=== PATIENT | female | born 1985 | race Caucasian/White ===

== ENCOUNTER 2016-11-21 11:06 | Emergency (ER) | payer OTHER ==
--- NOTE | 2016-11-21 12:33 | ED ---
Female Urogenital HPI - General Chief complaint: Vaginal Bleeding Stated complaint: 8wks preg/spotting Time Seen by Provider: 11/21/16 12:06 Source: patient, RN notes reviewed Mode of arrival: ambulatory Limitations: no limitations - History of Present Illness Initial comments: Patient is a 31-year-old female presents to the emergency room for evaluation of vaginal bleeding. Patient states about 8 weeks . Patient states she does have confirmed IUP by ultrasound. Patient states usually sees Dr. Tate for for her OB care. Patient states this morning she woke up was slight vaginal spotting. Patient states she noticed light pink blood in her underwear. Patient denies any cramping. Patient denies nausea or vomiting. Patient states the spotting has stopped since she's been here. Patient denies any pain or burning during urination, trouble urinating or blood in urine. Patient denies any vaginal irritation or discomfort. Patient states she has a history of chlamydia when she was younger that was treated. Patient denies any other symptoms or concerns. Patient states she's never had spotting before with her previous and felt she should be evaluated. Last Menstrual Period: 09/19/16 - Related Data Home Medications Medication Instructions Recorded Confirmed Pnv,Calcium 72/Iron/Folic Acid 1 tab PO DAILY 11/21/16 11/21/16 [ Plus Tablet] Allergies Allergy/AdvReac Type Severity Reaction Status Date / Time venom-honey bee Allergy Anaphylaxis Verified 11/21/16 11:51 [bee venom (honey bee)] Review of Systems ROS Statement: Those systems with pertinent positive or pertinent negative responses have been documented in the HPI. ROS Other: All systems not noted in ROS Statement are negative. Past Medical History Past Medical History: No Reported History Additional Past Medical History / Comment(s): Allergic to Bees. History of Any Multi-Drug Resistant Organisms: None Reported Past Surgical History: No Surgical Hx Reported Additional Past Surgical History / Comment(s): CKC Past Anesthesia/Blood Transfusion Reactions: No Reported Reaction Additional Past Anesthesia/Blood Transfusion Reaction / Comment(s): Has never had anesthesia. Past Psychological History: No Psychological Hx Reported Smoking Status: Current every day smoker Past Alcohol Use History: None Reported Past Drug Use History: None Reported - Past Family History Mother Family Medical History: No Reported History General Exam - General Exam Comments Initial Comments: Laying in exam room, no acute distress. Limitations: no limitations General appearance: alert, in no apparent distress Head exam: Present: atraumatic, normocephalic, normal inspection Eye exam: Present: normal appearance ENT exam: Present: normal exam Neck exam: Present: normal inspection Respiratory exam: Present: normal lung sounds bilaterally. Absent: respiratory distress Cardiovascular Exam: Present: regular rate, normal rhythm, normal heart sounds GI/Abdominal exam: Present: soft, normal bowel sounds. Absent: distended, tenderness, guarding, rebound, rigid External exam: Present: normal external exam Speculum exam: Present: vaginal bleeding (slight pink discharge from cervix) Expanded Speculum exam: Present: cervical OS closed Extremities exam: Present: normal inspection Back exam: Present: normal inspection Neurological exam: Present: alert, oriented X3, CN II-XII intact, normal gait Psychiatric exam: Present: normal affect, normal mood Skin exam: Present: warm, dry, intact, normal color. Absent: rash Course Vital Signs 11/21/16 11/21/16 11/21/16 11:29 13:16 14:54 Temperature 98.6 F 98.0 F Pulse Rate 93 80 81 Respiratory 20 16 16 Rate Blood Pressure 123/82 115/63 114/60 O2 Sat by Pulse 99 99 99 Oximetry 11/21/16 15:15 Temperature 97.9 F Pulse Rate Respiratory Rate Blood Pressure O2 Sat by Pulse Oximetry Medical Decision Making - Medical Decision Making Patient is a 31-year-old female presents emergency room for evaluation of slight vaginal spotting. Patient is . OB ultrasound: Estimated gestational age is discoordinate with current measurements approximately 2 weeks. Also, the sonogram for could not detect any M-mode heart tones. Color Doppler also shows no vascularity at the fetus. Findings suggest demise. Correlate with serial beta hCG values. Patient still denying any abdominal pain or cramping. Patient still denying any significant bleeding. Patient's blood type is O negative. Patient was given RhoGAM. Patient advised to return in 48 hours for repeat serum beta-hCG level. Patient states she has an appointment with her MARKETING PROGRAMS MANAGER tomorrow. Return parameters discussed. Case discussed with Dr. Stephen. - Lab Data Lab Results 11/21/16 11/21/16 11/21/16 Range/Units 12:20 12:20 12:20 HCG, Quant 6428.4 mIU/mL Urine Color Urine Appearance (Clear) Urine pH (5.0-8.0) Ur Specific [place] (1.001-1.035) Urine Protein (Negative) Urine Glucose (UA) (Negative) Urine Ketones (Negative) Urine Blood (Negative) Urine Nitrite (Negative) Urine Bilirubin (Negative) Urine Urobilinogen (<2.0) mg/dL Ur Leukocyte Esterase (Negative) Urine RBC (0-5) /hpf Urine WBC (0-5) /hpf Ur Squamous Epith Cells (0-4) /hpf Amorphous Sediment (None) /hpf Urine Bacteria (None) /hpf Urine Mucus (None) /hpf Urine HCG, Qual Detected (Not Detectd) Trichomonas Ag (Rapid) (Negative) Blood Type O Negative Blood Type Recheck O Neg Antibody Screen 11/21/16 11/21/16 11/21/16 Range/Units 12:20 12:20 12:20 HCG, Quant mIU/mL Urine Color Light Yellow Urine Appearance Cloudy H (Clear) Urine pH 5.5 (5.0-8.0) Ur Specific [place] 1.010 (1.001-1.035) Urine Protein Negative (Negative) Urine Glucose (UA) Negative (Negative) Urine Ketones Negative (Negative) Urine Blood Moderate H (Negative) Urine Nitrite Negative (Negative) Urine Bilirubin Negative (Negative) Urine Urobilinogen <2.0 (<2.0) mg/dL Ur Leukocyte Esterase Moderate H (Negative) Urine RBC 9 H (0-5) /hpf Urine WBC 11 H (0-5) /hpf Ur Squamous Epith Cells 24 H (0-4) /hpf Amorphous Sediment Occasional H (None) /hpf Urine Bacteria Occasional H (None) /hpf Urine Mucus Rare H (None) /hpf Urine HCG, Qual (Not Detectd) Trichomonas Ag (Rapid) Negative (Negative) Blood Type Blood Type Recheck Antibody Screen NEGATIVE - Radiology Data Radiology results: report reviewed, image reviewed Disposition Clinical Impression: Threatened Disposition: HOME SELF-CARE Condition: Good Instructions: Threatened Miscarriage (ED) Additional Instructions: Please follow-up with MARKETING PROGRAMS MANAGER in the next 24-48 hours. If any new symptom arises or symptoms worsen, return to ER as soon as possible. Referrals: Franchesca Figueredo MD [Primary Care Provider] - 1-2 days Noni Tate MD [STAFF PHYSICIAN] - 1-2 days Time of Disposition: 15:08
[2016-11-21 13:08] LABS: Amorphous Sediment,Urine Occasional /hpf; Appearance,Urine Cloudy (Clear); Bacteria,Urine Occasional /hpf; Bilirubin,Urine Negative (Negative); Glucose,Urine (UA) Negative (Negative); Ketones,Urine Negative (Negative); Leukocyte Esterase,Urine Moderate (Negative); Mucus,Urine Rare /hpf; Nitrite,Urine Negative (Negative); PH, Urine 5.5 (5.0-8.0); Particle Count 22657; Protein,Urine Negative (Negative); RBC,Urine 9 /hpf (0-5); Squamous Epithelial Cell,Urine 24 /hpf (0-4); UA Billing (MACRO vs. MICRO) MICRO; Urobilinogen,Urine <2.0 mg/dL (<2.0); WBC,Urine 11 /hpf (0-5)
[2016-11-21] MEDS ORDERED: Rhogam IMMUNE GLOBULIN 1,500 UNIT/1 ML IM ONE (13:13)
[2016-11-21 13:17] VITALS: RESP 16
--- NOTE | 2016-11-21 14:43 | US ---
EXAMINATION TYPE: US OB <=14 wks transvag DATE OF EXAM: 11/21/2016 COMPARISON: NONE CLINICAL HISTORY: 31-year-old female Pain. Spotting x 1 day Date of LMP: 09/19/2016 Beta HcG (if available): 6428.4 EXAM PERFORMED: Transvaginal (TV) FINDINGS: EXAM MEASUREMENTS: GESTATIONAL AGE / DATING Physician Established: (9 weeks/0 days) EDC: 06/26/2017 Dates by LMP: (9 weeks/0 days) EDC: 06/26/2017 Dates by First Scan: This is first Dates by Current Scan for: ( 7 weeks/1 days) EDC: 07/09/2017 MATERNAL ANATOMY Uterus: 6.7 x 3.3 x4.9 cm Right Ovary: Not seen due to overlying bowel gas. Left Ovary: 2.8 x 2.1 x 2.6 cm Post CDS / Adnexa: wnl Presence of free fluid: Trace fluid Presence of corpus luteal cyst: Within the left ovary measuring 1.9 cm. Presence of subchorionic bleed: no GESTATION / SURVEY CRL: 1.0 ( 7 weeks/1 days) Yolk Sac (normal less than 6mm): 3mm IUP: Demise IMPRESSION: Estimated gestational age is discordant with current measurements by approximately 2 weeks. Also, the consumer loan manager could not detect any M-mode heart tones. Color Doppler also shows no vascularity a t the fetus. Findings suggest demise. Correlate with serial beta-hCG values.
[2016-11-21 14:55] VITALS: BP 114/60; PULSE 81
[2016-11-21 15:16] VITALS: TEMP 97.9
== END 2016-11-21 15:25 | disposition home or self-care (01) ==
LOC: EC 11:06
DX: O20.0 Threatened abortion (principal); O99.331 Smoking (tobacco) complicating pregnancy, first trimester; F17.200 Nicotine dependence, unspecified, uncomplicated; Z3A.08 8 weeks gestation of pregnancy; Z91.030 Bee allergy status; Z79.899 Other long term (current) drug therapy
CPT/HCPCS: 99284; 96372; 36415; 86900; 86901; 87591; 87491; 86850; 81001; 81025; 84702; 87808; 87070; 76817; J2791; 76801; 87205

== ENCOUNTER → 2016-11-22 | Outpatient (CLI) | payer OTHER | END | disposition home or self-care (01) | LOC: LABPAT 12:30 | PROVIDERS: ATTEND Obstetrics & Gynecology | DX: Z53.9 Procedure and treatment not carried out, unspecified reason (principal) ==

== ENCOUNTER 2016-11-23 06:12 | Day surgery (SDC) | payer OTHER ==
[2016-11-22 14:20] LABS: Basophils % (A) 0 %; CH 31.2; CHCM 34.5; Eosinophils # (A) 0.1 k/uL (0-0.7); Eosinophils % (A) 1 %; HCT 40.2 % (34.0-46.0); HDW 2.33; Luc # (Auto) 0.13; Luc % (Auto) 1; Lymphocytes # (A) 1.8 k/uL (1.0-4.8); Lymphocytes % (A) 19 %; MCH 31.7 pg (25.0-35.0); MCHC 34.9 g/dL (31.0-37.0); MCV 90.8 fL (80.0-100.0); Mean Platelet Volume 9.3; Monocytes # (A) 0.5 k/uL (0-1.0); Monocytes % (A) 5 %; Neutrophils % (A) 73 %; RBC 4.42 m/uL (3.80-5.40); RDW 13.2 % (11.5-15.5); WBC 9.5 k/uL (3.8-10.6); WBC (Perox) 9.19
[2016-11-22 14:43] VITALS: BMI 26.2
[~2016-11-23 06:12] MED LIST: Pre Op ABX Message 1 EACH MISC MISCELLANE ONE
[2016-11-23] MEDS ORDERED: LACTATED RINGERS 1,000 ML IV ONE ×2 (06:29→07:16)
[2016-11-23] MEDS ORDERED: ONDANSETRON 4 MG/2 ML VIAL IVP ONE (06:30)
[2016-11-23] MEDS ORDERED: DEXAMETHASONE SOD PHOS (MDV) 100 MG/10 ML VIAL IVP ONE (06:30)
[2016-11-23] MEDS ORDERED: MIDAZOLAM 2 MG/2 ML VIAL ONE (06:55)
[2016-11-23] MEDS ORDERED: PROPOFOL 10 MG/ML 20 ML VIAL IV ONE (06:55)
[2016-11-23] MEDS ORDERED: KETOROLAC 30 MG/ML 1 ML VIAL ONE (06:55)
[2016-11-23] MEDS ORDERED: LIDOCAINE 1% INJ 10MG/ML (20 ML MDV) ONE (06:55)
[2016-11-23] MEDS ORDERED: SUCCINYLCHOLINE CHLORIDE 100 MG/5 ML SYR IV ONE (06:55)
--- NOTE | 2016-11-23 07:18 | P.OP ---
Date of Procedure: 11/23/16 Preoperative Diagnosis: Missed AB at 9 weeks gestation, Rh- Postoperative Diagnosis: Same Procedure(s) Performed: Suction D&C Implants: Anesthesia: GETA Surgeon: Noni Tate Estimated Blood Loss (ml): 100 IV fluids (ml): 700 Urine output (ml): 200 Pathology: other (Intrauterine contents) Condition: stable Disposition: PACU Indications for Procedure: Operative Findings: Description of Procedure: Patient is brought to the operating suite where a general anesthetic is administered without difficulty. The appropriate timeout is performed to assure proper patient and procedural identification. Patient is known to be Rh- , RhoGAM has already been given in the emergency room. No antibiotics are deemed necessary. The cervix, vagina, perineum are all prepped and draped in usual sterile fashion. Examination under anesthesia reveals an anteverted uterus of approximately 10 week size. Adnexa are negative bilaterally. Anterior lip of the cervix is grasped with a double-tooth tenaculum. Bladder is drained for 200 mL of clear yellow urine. Uterus sounds to a depth of 10 cm in the anteverted position. The cervix is next systematically and gently dilated using Hanks dilators. A # 8 curved curet is placed to the dome of the fundus. Under appropriate suction pressures the procedure is carried out. A moderate to large amount of tissue is obtained. A medium curette is used in all 4 quadrants and the cavity is noted to be empty. The suction curet is once again placed and no additional blood or products of conception are procured. Tenaculum is removed. Cervix is clean and dry. All sponge needle and enhancement counts are correct. Patient is brought back to the recovery room in very good condition with stable vital signs including blood pressure 94/45, pulse 95, 99% O2 saturation. She is given Toradol prior to leaving the operative suite. She will follow-up with me in the office in 2 weeks. Postoperative instructions are reviewed.
[2016-11-23 07:40] VITALS: TEMP 97.4
[2016-11-23 08:04] VITALS: RESP 16
[2016-11-23 08:21] VITALS: BP 113/82; PULSE 66
== END 2016-11-23 09:05 | disposition home or self-care (01) ==
LOC: OR 06:12
PROVIDERS: ATTEND Obstetrics & Gynecology
DX: O02.1 Missed abortion (principal); Z3A.09 9 weeks gestation of pregnancy; O99.331 Smoking (tobacco) complicating pregnancy, first trimester; F17.200 Nicotine dependence, unspecified, uncomplicated; Z91.030 Bee allergy status; J30.2 Other seasonal allergic rhinitis; Z79.899 Other long term (current) drug therapy
CPT/HCPCS: 86900; 86901; 88305; 85025; 86850; 86870; 86880; 59820; J2250; J2405; J2001; J1885; J1100; J0330; J2704

== ENCOUNTER 2017-05-24 16:08 | Emergency (ER) | payer OTHER ==
[2017-05-24 16:13] VITALS: BP 129/68; PULSE 90; RESP 20; TEMP 97.5
--- NOTE | 2017-05-24 16:30 | ED ---
General Adult HPI - General Chief complaint: Skin/Abscess/Foreign Body Stated complaint: L axillary boil Time Seen by Provider: 05/24/17 16:14 Source: patient, RN notes reviewed Mode of arrival: ambulatory Limitations: no limitations - History of Present Illness Initial comments: 32-year-old female presents emergency Department with chief complaint of abscess to the left axilla. She states it started about 3 days ago. She states she's had a history of these in the past. Denies any history of MRSA. Denies any fever chills cough cold Raynaud's. She states she has not been able to drain at home so she thought that she should be evaluated. There is been no other symptoms and the patient. Patient is otherwise feeling well.Patient denies any recent fever, chills, shortness of breath, chest pain, back pain, abdominal pain, nausea vomiting, numbness or tingling, dysuria or hematuria, constipation or diarrhea, headaches or visual changes, or any other current symptoms. - Related Data Home Medications Medication Instructions Recorded Confirmed Pnv,Calcium 72/Iron/Folic Acid 1 tab PO DAILY 11/21/16 11/22/16 [ Plus Tablet] Acetaminophen Tab [Tylenol Tab] 650 mg PO Q4H PRN 11/22/16 11/23/16 EPINEPHrine (Auto Inject) [Epipen] 0.3 mg IM ONCE PRN 11/22/16 11/22/16 Previous Rx's Medication Instructions Recorded Sulfamethox-Tmp 800-160Mg [Bactrim 2 each PO Q12HR #56 tab 05/24/17 DS 800-160 mg] Allergies Allergy/AdvReac Type Severity Reaction Status Date / Time venom-honey bee Allergy Anaphylaxis Verified 05/24/17 16:12 [bee venom (honey bee)] Review of Systems ROS Statement: Those systems with pertinent positive or pertinent negative responses have been documented in the HPI. ROS Other: All systems not noted in ROS Statement are negative. Past Medical History Past Medical History: No Reported History Additional Past Medical History / Comment(s): Allergic to Bees. MISSED AB CURRENTLY History of Any Multi-Drug Resistant Organisms: None Reported Past Surgical History: No Surgical Hx Reported Additional Past Surgical History / Comment(s): CKC, D&C Past Anesthesia/Blood Transfusion Reactions: No Reported Reaction Additional Past Anesthesia/Blood Transfusion Reaction / Comment(s): Has never had anesthesia. Past Psychological History: Anxiety, Depression Smoking Status: Current every day smoker Past Alcohol Use History: Occasional Past Drug Use History: None Reported - Past Family History Mother Family Medical History: No Reported History General Exam Limitations: no limitations General appearance: alert, in no apparent distress ENT exam: Present: normal exam, mucous membranes moist Neck exam: Present: normal inspection. Absent: tenderness, meningismus, lymphadenopathy Respiratory exam: Present: normal lung sounds bilaterally. Absent: respiratory distress, wheezes, rales, rhonchi, stridor Cardiovascular Exam: Present: regular rate, normal rhythm, normal heart sounds. Absent: systolic murmur, diastolic murmur, rubs, gallop, clicks Psychiatric exam: Present: normal affect, normal mood Skin exam: Present: warm, dry, intact, normal color, other (Left arm axilla area abscess) Course Vital Signs 05/24/17 16:11 Temperature 97.5 F L Pulse Rate 90 Respiratory 20 Rate Blood Pressure 129/68 O2 Sat by Pulse 100 Oximetry Procedures - Procedures Initial comment: Procedure: Incision and drainage The skin overlying the abscess was prepped with Betadine, and anesthetized with 1% lidocaine without epinephrine. A #11 scalpel was then used to incise the abscess. Some purulent material was then extracted from the lesion. Gauze dressing placed on top, The patient tolerated the procedure well. Medical Decision Making - Medical Decision Making 32-year-old female presents for left axilla abscess. At this time patient went drainage. We discussed care follow-up return parameters all questions. Patient stated that they are understanding and agreement this plan. All questions have been answered. They'll be discharged. Disposition Clinical Impression: Abscess of left axilla Disposition: HOME SELF-CARE Condition: Stable Instructions: Abscess (ED), Abscess Incision and Drainage (ED) Additional Instructions: Please use medication as discussed. Please follow up with family doctor if symptoms have not improved over the next two days. Please return to the emergency room if your symptoms increase or worsen or for any other concerns. Prescriptions: Sulfamethox-Tmp 800-160Mg [Bactrim DS 800-160 mg] 2 each PO Q12HR #56 tab Referrals: Franchesca Figueredo MD [Primary Care Provider] - 1-2 days Time of Disposition: 16:30
[2017-05-24] MEDS ORDERED: IBUPROFEN 600 MG STARTER PACK 4 TAB BTL PO STA (16:41)
== END 2017-05-24 16:48 | disposition home or self-care (01) ==
LOC: EC 16:08
DX: L02.412 Cutaneous abscess of left axilla (principal); F17.200 Nicotine dependence, unspecified, uncomplicated; Z91.030 Bee allergy status
CPT/HCPCS: 10060; 99282

== ENCOUNTER 2017-06-04 13:19 | Emergency (ER) | payer OTHER ==
[2017-06-04 13:38] VITALS: TEMP 98.6
[2017-06-04] MEDS ORDERED: diphenhydrAMINE 50 MG CAP PO STA (13:52)
[2017-06-04] MEDS ORDERED: predniSONE 20 MG TAB PO STA (13:52)
[2017-06-04] MEDS ORDERED: FAMOTIDINE 20 MG TAB PO STA (13:53)
--- NOTE | 2017-06-04 13:57 | ED ---
General Adult HPI - General Chief complaint: Allergic Reaction Stated complaint: Rash/Light headed Time Seen by Provider: 06/04/17 13:42 Source: patient, RN notes reviewed, old records reviewed Mode of arrival: ambulatory Limitations: no limitations - History of Present Illness Initial comments: Chief complaint and history of present illness is a 32-year-old female who has been on sulfa medication for 10 days. She had a left axillary abscess. Infection since gone away. Patient developed a pruritic rash starting yesterday. No difficulty breathing. No hives. - Related Data Home Medications Medication Instructions Recorded Confirmed Pnv,Calcium 72/Iron/Folic Acid 1 tab PO DAILY 11/21/16 11/22/16 [ Plus Tablet] Acetaminophen Tab [Tylenol Tab] 650 mg PO Q4H PRN 11/22/16 11/23/16 EPINEPHrine (Auto Inject) [Epipen] 0.3 mg IM ONCE PRN 11/22/16 11/22/16 Previous Rx's Medication Instructions Recorded Sulfamethox-Tmp 800-160Mg [Bactrim 2 each PO Q12HR #56 tab 05/24/17 DS 800-160 mg] predniSONE 20 mg PO DAILY #3 tab 06/04/17 Allergies Allergy/AdvReac Type Severity Reaction Status Date / Time venom-honey bee Allergy Anaphylaxis Verified 06/04/17 13:38 [bee venom (honey bee)] Review of Systems ROS Statement: Those systems with pertinent positive or pertinent negative responses have been documented in the HPI. Review of systems. No headache or visual acuity changes no sore throat no chest pain no shortness of breath. No GI/ problems no neuro deficits. The patient has a mildly pruritic rash from neck to the foot. No hives. All systems are reviewed. Past medical problem significant for having had MRSA type infection was responsive to the sulfa drug which she is taking for the first time the past 10 days. She appears to development ALLERGIC reaction. The patient's surgeries include D&C in November. Family history grandmother has lung cancer. The patient has ALLERGIES at now known to be sulfa also to bees. Personal history patient drinks alcohol socially, smokes cigarettes. Encouraged to stop smoking cigarettes. ROS Other: All systems not noted in ROS Statement are negative. Past Medical History Past Medical History: No Reported History Additional Past Medical History / Comment(s): Allergic to Bees. MISSED AB CURRENTLY History of Any Multi-Drug Resistant Organisms: None Reported Past Surgical History: No Surgical Hx Reported Additional Past Surgical History / Comment(s): CKC, D&C Past Anesthesia/Blood Transfusion Reactions: No Reported Reaction Additional Past Anesthesia/Blood Transfusion Reaction / Comment(s): Has never had anesthesia. Past Psychological History: Anxiety, Depression Smoking Status: Current every day smoker Past Alcohol Use History: Occasional Past Drug Use History: None Reported - Past Family History Mother Family Medical History: No Reported History General Exam - General Exam Comments Initial Comments: General: The patient is awake and alert, in no distress, and does not appear acutely ill. Presents with a rash secondary to medication she's been on for 10 dayssulfa. Vital signs shows temperature 98.6 pulse 94 story rate 16 pulse ox on percent room air blood pressure 179/67. Initial be repeated. Repeat blood pressure was 112/57 Eye: Pupils are equal, round and reactive to light, extra-ocular movements are intact ; there is normal conjunctiva bilaterally. No signs of icterus. Ears, nose, mouth and throat: There are moist mucous membranes and no oral lesions , no anterior cervical lymphadenopathy, no meningeal rotation, thyroid not enlarged.. Neck: The neck is supple, there is no tenderness . Cardiovascular: There is a regular rate and rhythm. No murmur, rub or gallop is appreciated. Respiratory: Lungs are clear to auscultation, respirations are non-labored, breath sounds are equal. No wheezes, stridor, rales, or rhonchi. Gastrointestinal: No complaint of nausea vomiting or diarrhea. No abdominal pain. Back: There is no tenderness to palpation in the midline. There is no obvious deformity. Patient has a rash typical of sulfa drug eruption. Musculoskeletal: Normal ROM, no tenderness, Neurological: Patient denies any numbness tingling no dizziness. No focal or lateralizing findings. Skin: Drug eruption rash secondary to sulfa.Psychiatric: Cooperative, no complaint of depression. Limitations: no limitations Course Vital Signs 06/04/17 13:36 Temperature 98.6 F Pulse Rate 94 Respiratory 16 Rate Blood Pressure 179/67 O2 Sat by Pulse 100 Oximetry Disposition Clinical Impression: Adverse reaction to drug Disposition: HOME SELF-CARE Condition: Fair Instructions: Antibiotic Medication Allergy (ED) Additional Instructions: Take Benadryl 25 mg 3 times daily. Prednisone 20 mg daily for 3 days, Pepcid 20 mg for 3 days. Stop taking sulfa. Return emergency room if having difficulties. Prescriptions: predniSONE 20 mg PO DAILY #3 tab Referrals: Franchesca Figueredo MD [Primary Care Provider] - 1-2 days Time of Disposition: 14:00
[2017-06-04 14:28] VITALS: BP 167/70; PULSE 90; RESP 18
== END 2017-06-04 14:27 | disposition home or self-care (01) ==
LOC: EC 13:19
DX: R21 Rash and other nonspecific skin eruption (principal); T37.0X5A Adverse effect of sulfonamides, initial encounter; F17.210 Nicotine dependence, cigarettes, uncomplicated; Z91.030 Bee allergy status
CPT/HCPCS: 99283; J7512

== ENCOUNTER 2019-04-17 19:34 | Emergency (ER) | payer OTHER ==
[2019-04-17] MEDS ORDERED: SODIUM CHLORIDE 0.9% 1,000 ML IV STA (21:06)
[2019-04-17 21:53] LABS: African American GFR (CKD) >90 (>60 ml/min/1.73 sqM); Albumin 3.9 g/dL (3.5-5.0); Amylase 34 U/L (30-110); Anion Gap 7 mmol/L; Calcium 9.3 mg/dL (8.4-10.2); Carbon Dioxide 25 mmol/L (22-30); Chloride 106 mmol/L (98-107); Glucose 90 mg/dL (74-99); Non-African American GFR(CKD) >90 (>60 ml/min/1.73 sqM); Sodium 138 mmol/L (137-145); Total Bilirubin 0.5 mg/dL (0.2-1.3); Total Protein 6.7 g/dL (6.3-8.2)
[2019-04-17 21:56] LABS: Appearance,Urine Cloudy (Clear); Bacteria,Urine Rare /hpf; Bilirubin,Urine Negative (Negative); Blood,Urine Moderate (Negative); Color,Urine Light Red; Glucose,Urine (UA) Negative (Negative); Ketones,Urine Negative (Negative); Leukocyte Esterase,Urine Small (Negative); Mucus,Urine Many /hpf; Nitrite,Urine Negative (Negative); PH, Urine 5.5 (5.0-8.0); Protein,Urine 1+ (Negative); RBC,Urine 25 /hpf (0-5); Specific Gravity,Urine 1.034 (1.001-1.035); Squamous Epithelial Cell,Urine 19 /hpf (0-4); Urobilinogen,Urine <2.0 mg/dL (<2.0)
[2019-04-17 21:58] LABS: Basophils % (A) 0 %; Eosinophils # (A) 0.3 k/uL (0-0.7); Eosinophils % (A) 2 %; HCT 38.4 % (34.0-46.0); HGB 12.9 gm/dL (11.4-16.0); Lymphocytes # (A) 2.3 k/uL (1.0-4.8); Lymphocytes % (A) 21 %; MCH 30.8 pg (25.0-35.0); MCHC 33.6 g/dL (31.0-37.0); MCV 91.5 fL (80.0-100.0); Mean Platelet Volume 8.6; Monocytes # (A) 0.7 k/uL (0-1.0); Monocytes % (A) 6 %; Neutrophils # (A) 7.6 k/uL (1.3-7.7); Neutrophils % (A) 69 %; Platelet Count 173 k/uL (150-450); RBC 4.19 m/uL (3.80-5.40)
[2019-04-17 22:09] LABS: HCG,Quantitative Serum 7263.6 mIU/mL
[2019-04-17 22:10] LABS: ALT 11 U/L (9-52); AST 22 U/L (14-36); Alkaline Phosphatase 61 U/L (38-126); Blood Urea Nitrogen 14 mg/dL (7-17); Potassium 4.3 mmol/L (3.5-5.1)
[2019-04-17] MEDS ORDERED: Rhogam IMMUNE GLOBULIN 1,500 UNIT/1 ML IM ONE (22:49)
--- NOTE | 2019-04-17 23:00 | US ---
EXAMINATION TYPE: Transabdominal DATE OF EXAM: 04/17/2019 10:44 PM COMPARISON: US 2017 CLINICAL HISTORY: Cramping/bleeding/approx 9wks. Cramping and bleeding x 3 days. Hx miscarriage. G3 P 1. EXAM PERFORMED: Transvaginal (TV) and Transabdominal (TA) EXAM MEASUREMENTS: GESTATIONAL AGE / DATING Physician Established: Not yet established Dates by LMP: (9 weeks/2 days) EDC: 11/18/2019 Dates by First Scan: This is first scan Dates by Current Scan for: Only gestational sac seen ( 5 weeks/2 days) EDC: 12/16/2019 MATERNAL ANATOMY Uterus: 7.5 x 5.2 x 4.8 cm. Multiple anechoic areas seen in EWELINA. Right Ovary: 3.4 x 1.7 x 2.0 cm. Left Ovary: 3.1 x 1.3 x 1.4 cm. Post CDS / Adnexa: Anechoic area seen in the right adnexa adjacent to or attached to right ovary amairani urin.2 x 1.0 x 1.1 cm. Presence of free fluid: Fluid seen in left adnexa adjacent to left ovary. Presence of corpus luteal cyst: Area of mixed echogenicity and peripheral vascularity seen in the rig ht ovary measurin.4 x 1.2 x 1.3 cm. Presence of subchorionic bleed: Hypoechoic area seen adjacent to gestational sac measurin.0 x 2.3 x 1.0 cm. GESTATION / SURVEY MSD: 1.14 cm. (5 weeks/2 days) Yolk Sac (normal less than 6mm): 4.1 mm. IUP: Only gestational sac and possible yolk sac seen at this time. Date of LMP: 02/11/2019 Only gestational sac and possible yolk sac seen at this time. IMPRESSION: Very small intrauterine gestational sac and possible yolk sac. Trace amount of fluid in the pelvis. N o adnexal mass seen to suggest ectopic .
--- NOTE | 2019-04-17 23:32 | ED ---
Abdominal Pain HPI - General Chief Complaint: Abdominal Pain Stated Complaint: 9 wks preg/female gu Time Seen by Provider: 04/17/19 20:48 Source: patient Mode of arrival: ambulatory Limitations: no limitations - History of Present Illness Initial Comments: 34-year-old female patient presents to the emergency department today for evaluation of vaginal bleeding and suprapubic cramping. Patient reports being . She believes she struck 9 weeks with last period being 02/11/2019. She is A1 with her last resulting in spontaneous . She has had her first visit with her PROSPECTING OBSERVER. She has not had a ultrasound confirming intrauterine . Patient states for the last 3 days she has had light brown discoloration of the toilet paper with wiping. States today she developed some suprapubic cramping. Denies radiation of the pain through to her back. Denies any nausea, vomiting, constipation, or diarrhea. Denies any hematuria, dysuria, urinary frequency, urinary urgency. Patient denies any recent rash, fever, chills, shortness breath, chest pain, numbness, tingling, dizziness, weakness, headache, visual changes, or any other complaints. - Related Data Home Medications Medication Instructions Recorded Confirmed Pnv,Calcium 72/Iron/Folic Acid 1 tab PO DAILY 11/21/16 06/04/17 [ Plus Tablet] Acetaminophen Tab [Tylenol Tab] 650 mg PO Q4H PRN 11/22/16 06/04/17 EPINEPHrine (Auto Inject) [Epipen] 0.3 mg IM ONCE PRN 11/22/16 06/04/17 Ibuprofen [Motrin Ib] 800 mg PO Q8H PRN 06/04/17 06/04/17 Previous Rx's Medication Instructions Recorded Sulfamethox-Tmp 800-160Mg [Bactrim 2 each PO Q12HR #56 tab 05/24/17 DS 800-160 mg] predniSONE 20 mg PO DAILY #3 tab 06/04/17 Cephalexin [Keflex] 500 mg PO BID #14 cap 04/17/19 Allergies Allergy/AdvReac Type Severity Reaction Status Date / Time venom-honey bee Allergy Anaphylaxis Verified 04/17/19 19:52 [bee venom (honey bee)] Review of Systems ROS Statement: Those systems with pertinent positive or pertinent negative responses have been documented in the HPI. ROS Other: All systems not noted in ROS Statement are negative. Past Medical History Past Medical History: No Reported History Additional Past Medical History / Comment(s): Allergic to Bees. MISSED AB CURRENTLY History of Any Multi-Drug Resistant Organisms: None Reported Past Surgical History: No Surgical Hx Reported Additional Past Surgical History / Comment(s): CKC, D&C Past Anesthesia/Blood Transfusion Reactions: No Reported Reaction Additional Past Anesthesia/Blood Transfusion Reaction / Comment(s): Has never had anesthesia. Past Psychological History: Anxiety, Depression Smoking Status: Current every day smoker Past Alcohol Use History: Occasional Past Drug Use History: None Reported - Past Family History Mother Family Medical History: No Reported History General Exam Limitations: no limitations General appearance: alert, in no apparent distress, other (This is a well- developed, well-nourished adult female patient in no acute distress. Vital signs upon presentation are temperature 98.7F, pulse 90, respirations 20, blood pressure 122/77, pulse ox 97% on room air.) Eye exam: Present: normal appearance, PERRL, EOMI. Absent: scleral icterus, conjunctival injection, periorbital swelling ENT exam: Present: normal exam, normal oropharynx, mucous membranes moist Respiratory exam: Present: normal lung sounds bilaterally. Absent: respiratory distress, wheezes, rales, rhonchi, stridor Cardiovascular Exam: Present: regular rate, normal rhythm, normal heart sounds. Absent: systolic murmur, diastolic murmur, rubs, gallop, clicks GI/Abdominal exam: Present: soft, normal bowel sounds. Absent: distended, tenderness, guarding, rebound, rigid Back exam: Absent: CVA tenderness (R), CVA tenderness (L) Neurological exam: Present: alert, oriented X3, CN II-XII intact Psychiatric exam: Present: normal affect, normal mood Skin exam: Present: warm, dry, intact, normal color. Absent: rash Course Vital Signs 04/17/19 19:50 Temperature 98.7 F Pulse Rate 90 Respiratory 20 Rate Blood Pressure 122/77 O2 Sat by Pulse 97 Oximetry Medical Decision Making - Medical Decision Making 34-year-old female patient presents to the emergency department today for evaluation of spotting and suprapubic cramping and . Physical examination reveals soft nontender abdomen. Labs reviewed and did reveal bacteria in the urine. She was Rh- so we did administer RhoGAM. Ultrasound was obtained and showed a very small gestational sac and a possible yolk sac. Patient was estimated to be around 9 weeks based on her last period, she has measuring 5 weeks 3 days. Given this information there is possibility for spontaneous rather than early . We will give prescription for repeat hCG in 3 days. We will treat for bacteruria with keflex. She is instructed follow up with her OBGYN for recheck as soon as possible. Return parameters were discussed in detail. She verbalizes understanding and agrees with this plan. - Lab Data Result diagrams: 04/17/19 21:37 04/17/19 21:37 Lab Results 04/17/19 04/17/19 04/17/19 Range/Units 21:37 21:37 21:37 WBC 11.0 H (3.8-10.6) k/uL RBC 4.19 (3.80-5.40) m/uL Hgb 12.9 (11.4-16.0) gm/dL Hct 38.4 (34.0-46.0) % MCV 91.5 (80.0-100.0) fL MCH 30.8 (25.0-35.0) pg MCHC 33.6 (31.0-37.0) g/dL RDW 13.0 (11.5-15.5) % Plt Count 173 (150-450) k/uL Neutrophils % 69 % Lymphocytes % 21 % Monocytes % 6 % Eosinophils % 2 % Basophils % 0 % Neutrophils # 7.6 (1.3-7.7) k/uL Lymphocytes # 2.3 (1.0-4.8) k/uL Monocytes # 0.7 (0-1.0) k/uL Eosinophils # 0.3 (0-0.7) k/uL Basophils # 0.0 (0-0.2) k/uL Sodium 138 (137-145) mmol/L Potassium 4.3 (3.5-5.1) mmol/L Chloride 106 (98-107) mmol/L Carbon Dioxide 25 (22-30) mmol/L Anion Gap 7 mmol/L BUN 14 (7-17) mg/dL Creatinine 0.55 (0.52-1.04) mg/dL Est GFR (CKD-EPI)AfAm >90 (>60 ml/min/1.73 sqM) Est GFR (CKD-EPI)NonAf >90 (>60 ml/min/1.73 sqM) Glucose 90 (74-99) mg/dL Calcium 9.3 (8.4-10.2) mg/dL Total Bilirubin 0.5 (0.2-1.3) mg/dL AST 22 (14-36) U/L ALT 11 (9-52) U/L Alkaline Phosphatase 61 (38-126) U/L Total Protein 6.7 (6.3-8.2) g/dL Albumin 3.9 (3.5-5.0) g/dL Amylase 34 (30-110) U/L Lipase 79 (23-300) U/L HCG, Quant 7263.6 mIU/mL Urine Color Urine Appearance (Clear) Urine pH (5.0-8.0) Ur Specific [place] (1.001-1.035) Urine Protein (Negative) Urine Glucose (UA) (Negative) Urine Ketones (Negative) Urine Blood (Negative) Urine Nitrite (Negative) Urine Bilirubin (Negative) Urine Urobilinogen (<2.0) mg/dL Ur Leukocyte Esterase (Negative) Urine RBC (0-5) /hpf Urine WBC (0-5) /hpf Ur Squamous Epith Cells (0-4) /hpf Urine Bacteria (None) /hpf Urine Mucus (None) /hpf Blood Type O Negative Blood Type Recheck O Neg Bld Type Recheck Status No Antibody Screen NEGATIVE 04/17/19 Range/Units 21:37 WBC (3.8-10.6) k/uL RBC (3.80-5.40) m/uL Hgb (11.4-16.0) gm/dL Hct (34.0-46.0) % MCV (80.0-100.0) fL MCH (25.0-35.0) pg MCHC (31.0-37.0) g/dL RDW (11.5-15.5) % Plt Count (150-450) k/uL Neutrophils % % Lymphocytes % % Monocytes % % Eosinophils % % Basophils % % Neutrophils # (1.3-7.7) k/uL Lymphocytes # (1.0-4.8) k/uL Monocytes # (0-1.0) k/uL Eosinophils # (0-0.7) k/uL Basophils # (0-0.2) k/uL Sodium (137-145) mmol/L Potassium (3.5-5.1) mmol/L Chloride (98-107) mmol/L Carbon Dioxide (22-30) mmol/L Anion Gap mmol/L BUN (7-17) mg/dL Creatinine (0.52-1.04) mg/dL Est GFR (CKD-EPI)AfAm (>60 ml/min/1.73 sqM) Est GFR (CKD-EPI)NonAf (>60 ml/min/1.73 sqM) Glucose (74-99) mg/dL Calcium (8.4-10.2) mg/dL Total Bilirubin (0.2-1.3) mg/dL AST (14-36) U/L ALT (9-52) U/L Alkaline Phosphatase (38-126) U/L Total Protein (6.3-8.2) g/dL Albumin (3.5-5.0) g/dL Amylase (30-110) U/L Lipase (23-300) U/L HCG, Quant mIU/mL Urine Color Light Red Urine Appearance Cloudy H (Clear) Urine pH 5.5 (5.0-8.0) Ur Specific [place] 1.034 (1.001-1.035) Urine Protein 1+ H (Negative) Urine Glucose (UA) Negative (Negative) Urine Ketones Negative (Negative) Urine Blood Moderate H (Negative) Urine Nitrite Negative (Negative) Urine Bilirubin Negative (Negative) Urine Urobilinogen <2.0 (<2.0) mg/dL Ur Leukocyte Esterase Small H (Negative) Urine RBC 25 H (0-5) /hpf Urine WBC 40 H (0-5) /hpf Ur Squamous Epith Cells 19 H (0-4) /hpf Urine Bacteria Rare H (None) /hpf Urine Mucus Many H (None) /hpf Blood Type Blood Type Recheck Bld Type Recheck Status Antibody Screen - Radiology Data Radiology results: report reviewed, image reviewed ultrasound was obtained. Report was reviewed in its entirety. Impression by Dr. Bryson shows very small intrauterine gestational sac and possibly yolk sac. Trace amount of fluid in the pelvis. No adnexal mass seen to suggest ectopic . Disposition Clinical Impression: Vaginal bleeding during , Threatened miscarriage Disposition: HOME SELF-CARE Condition: Good Instructions (If sedation given, give patient instructions): Threatened Miscarriage (ED), Abdominal Pain in (ED) Additional Instructions: Return for blood draw in 3 days. Follow-up with your PROSPECTING OBSERVER for recheck as soon as possible. Return to the emergency department immediately for any new, worsening, or concerning symptoms. Is patient prescribed a controlled substance at d/c from ED?: No Referrals: Franchesca Figueredo MD [Primary Care Provider] - 1-2 days Time of Disposition: 23:32
[2019-04-17 23:58] VITALS: BP 111/71; PULSE 80; RESP 18; TEMP 97.8
== END 2019-04-17 23:58 | disposition home or self-care (01) ==
LOC: EC 19:34
DX: O20.0 Threatened abortion (principal); O99.89 Other specified diseases and conditions complicating pregnancy, childbirth and the puerperium; R82.71 Bacteriuria; Z67.41 Type O blood, Rh negative; O99.331 Smoking (tobacco) complicating pregnancy, first trimester; F17.200 Nicotine dependence, unspecified, uncomplicated; Z91.030 Bee allergy status; Z87.59 Personal history of other complications of pregnancy, childbirth and the puerperium; Z98.890 Other specified postprocedural states; Z3A.01 Less than 8 weeks gestation of pregnancy
CPT/HCPCS: 36415; 76801; 76817; 80053; 81001; 82150; 83690; 84702; 85025; 86850; 86900; 86901; 87086; 96360; 96361; 96372; 99284

== ENCOUNTER → 2019-04-19 | Outpatient (CLI) | payer OTHER | END | disposition home or self-care (01) | LOC: LABWHC1 11:58 | PROVIDERS: ATTEND Nurse Practitioner | DX: O20.0 Threatened abortion (principal) | CPT/HCPCS: 36415; 84702 ==

== ENCOUNTER → 2019-04-26 | Outpatient (CLI) | payer OTHER | END | disposition home or self-care (01) | LOC: LABWHC1 16:24 | PROVIDERS: ATTEND Obstetrics & Gynecology | DX: O03.4 Incomplete spontaneous abortion without complication (principal) | CPT/HCPCS: 36415; 84702 ==

== ENCOUNTER → 2019-05-03 | Outpatient (CLI) | payer OTHER | END | disposition home or self-care (01) | LOC: LABWHC1 15:56 | PROVIDERS: ATTEND Obstetrics & Gynecology | DX: O03.9 Complete or unspecified spontaneous abortion without complication (principal) | CPT/HCPCS: 36415; 84702 ==

== ENCOUNTER → 2019-05-10 | Outpatient (CLI) | payer OTHER | END | disposition home or self-care (01) | LOC: LABWHC1 15:17 | PROVIDERS: ATTEND Obstetrics & Gynecology | DX: O03.9 Complete or unspecified spontaneous abortion without complication (principal) | CPT/HCPCS: 36415; 84702 ==

== ENCOUNTER 2020-02-28 18:28 | Emergency (ER) | payer OTHER ==
[2020-02-28 18:35] VITALS: TEMP 98.5
[2020-02-28] MEDS ORDERED: LIDOCAINE 1% INJ 10MG/ML (20 ML MDV) SQ ONE (19:04)
[2020-02-28] MEDS ORDERED: HYDROcodone/APAP 5-325MG 1 EACH TAB PO STA (19:04)
[2020-02-28] MEDS ORDERED: CLINDAMYCIN 150 MG CAP PO STA (19:04)
[2020-02-28] MEDS ORDERED: KETOROLAC 15 MG/ML 1 ML VIAL IM STA (19:04)
[2020-02-28] MEDS ORDERED: ACET/COD 300 MG/30 MG STARTER PACK 6 TAB BTL PO STA (19:55)
--- NOTE | 2020-02-28 19:56 | ED ---
Skin/Abscess/FB HPI - General Chief complaint: Skin/Abscess/Foreign Body Stated complaint: Abscess Time Seen by Provider: 02/28/20 18:44 Source: patient Mode of arrival: ambulatory Limitations: no limitations - History of Present Illness Initial comments: 34-year-old female patient presents to the emergency department today for evaluation of redness, swelling, pain to the right armpit. Patient states that she has had increased pain and swelling to the area over the last 2 days. States that she has similar issues with the left armpit over the last 3 or 4 years. States she has been diagnosed with hidradenitis and instructed to follow-up with plastic surgery for further evaluation and care. Patient states this is the first time she's had issue with the right armpit. She denies any drainage from the area. Denies fever or chills. Denies any right arm swelling or pain. Patient denies any recent rash, cough, shortness of breath, chest pain, abdominal pain, nausea, vomiting, diarrhea, constipation, back pain, numbness, tingling, dizziness, weakness, hematuria, dysuria, urinary urgency, urinary frequency, headache, visual changes, or any other complaints. - Related Data Home Medications Medication Instructions Recorded Confirmed Pnv,Calcium 72/Iron/Folic Acid 1 tab PO DAILY 11/21/16 06/04/17 [ Plus Tablet] Acetaminophen Tab [Tylenol Tab] 650 mg PO Q4H PRN 11/22/16 06/04/17 EPINEPHrine (Auto Inject) [Epipen] 0.3 mg IM ONCE PRN 11/22/16 06/04/17 Ibuprofen [Motrin Ib] 800 mg PO Q8H PRN 06/04/17 06/04/17 Previous Rx's Medication Instructions Recorded Sulfamethox-Tmp 800-160Mg [Bactrim 2 each PO Q12HR #56 tab 05/24/17 DS 800-160 mg] predniSONE [Deltasone] 20 mg PO DAILY #3 tab 06/04/17 Cephalexin [Keflex] 500 mg PO BID #14 cap 04/17/19 Clindamycin [Cleocin] 450 mg PO Q6H #120 cap 02/28/20 Allergies Allergy/AdvReac Type Severity Reaction Status Date / Time venom-honey bee Allergy Anaphylaxis Verified 02/28/20 18:35 [bee venom (honey bee)] Review of Systems ROS Statement: Those systems with pertinent positive or pertinent negative responses have been documented in the HPI. ROS Other: All systems not noted in ROS Statement are negative. Past Medical History Past Medical History: No Reported History Additional Past Medical History / Comment(s): Allergic to Bees. MISSED AB CURRENTLY History of Any Multi-Drug Resistant Organisms: None Reported Past Surgical History: No Surgical Hx Reported Additional Past Surgical History / Comment(s): CKC, D&C Past Anesthesia/Blood Transfusion Reactions: No Reported Reaction Additional Past Anesthesia/Blood Transfusion Reaction / Comment(s): Has never had anesthesia. Past Psychological History: Anxiety, Depression Smoking Status: Current every day smoker Past Alcohol Use History: Occasional Past Drug Use History: None Reported - Past Family History Mother Family Medical History: No Reported History General Exam Limitations: no limitations General appearance: alert, in no apparent distress, other (This is a well- developed, well-nourished adult female patient in no acute distress. Vital signs upon presentation are temperature 98.5F, pulse 102, respirations 20, blood pressure 158/100, pulse ox 99% on room air.) Respiratory exam: Present: normal lung sounds bilaterally. Absent: respiratory distress, wheezes, rales, rhonchi, stridor Cardiovascular Exam: Present: regular rate, normal rhythm, normal heart sounds. Absent: systolic murmur, diastolic murmur, rubs, gallop, clicks Extremities exam: Present: full ROM, normal capillary refill, other (There is a 2 cm x 1 cm area of redness, swelling, fluctuance to the right axillary region. This is consistent with abscess. No current drainage.). Absent: normal inspection, tenderness, pedal edema, joint swelling, calf tenderness Neurological exam: Present: alert, oriented X3, CN II-XII intact Psychiatric exam: Present: normal affect Skin exam: Present: warm, dry, intact, normal color. Absent: rash Course Vital Signs 02/28/20 02/28/20 18:32 20:08 Temperature 98.5 F Pulse Rate 102 H 86 Respiratory 20 16 Rate Blood Pressure 158/100 145/95 O2 Sat by Pulse 99 98 Oximetry Procedures - [place] Protocol (Time Out) Procedure Performed:: Abscess incision and drainage Performing Provider: Vinita Chong Nurse: Denise Plaza Timeout Date: 10/16/20 Timeout Time: 19:35 Patient Identification (2 identifiers required): Verbal, Arm Band, Name, Birthdate Patient/Legal Outside Upholsterer has Confirmed: Identity, Site, Procedure, Consent Site: Right axilla Site Marked: Yes Site Verified With Patient/Guardian: Yes Final Confirmation: Site, Patient Position - Incision & Drainage Consent Obtained: verbal consent Indication: abscess Site: other (Right axilla) Size (cm): 2 Anesthetic Used: lidocaine 1% Amount (mLs): 4 I&D Cleaning Method: Betadine Scalpel Used: #11 I&D Drainage Obtained: Pus, Blood Culture Obtained?: Yes Patient Tolerated Procedure: well, no complications Medical Decision Making - Medical Decision Making 34-year-old female patient presents to the emergency department today for evaluation of pain, redness, swelling to the right axillary region. Physical examination did reveal 2 cm x 1 cm abscess. Consent was obtained, incision and drainage was performed. Culture was obtained. She'll be started on clindamycin. She is instructed to follow-up with her primary care physician for recheck in 1-2 days. Return parameters were discussed in detail. She verbalizes understanding and agrees with this plan. Disposition Clinical Impression: Abscess of right axilla Disposition: HOME SELF-CARE Condition: Good Instructions (If sedation given, give patient instructions): Abscess Incision and Drainage (ED), Abscess (ED) Additional Instructions: Apply warm compresses to the right armpit 3-4 times daily. Complete antibiotic prescription and full. Follow-up with your primary care physician for recheck in 1-2 days. Return to the emergency department immediately for any new, worsening, or concerning symptoms. Prescriptions: Clindamycin [Cleocin] 450 mg PO Q6H #120 cap Is patient prescribed a controlled substance at d/c from ED?: No Referrals: Franchesca Figueredo MD [Primary Care Provider] - 1-2 days Time of Disposition: 19:55
[2020-02-28 20:09] VITALS: BP 145/95; PULSE 86; RESP 16
== END 2020-02-28 20:10 | disposition home or self-care (01) ==
LOC: EC 18:28
DX: L02.411 Cutaneous abscess of right axilla (principal); F17.200 Nicotine dependence, unspecified, uncomplicated; Z91.030 Bee allergy status
CPT/HCPCS: 87070; 87205; 99283; 96372; 10060; J2001; J1885

== ENCOUNTER 2021-05-18 18:42 | Emergency (ER) | payer OTHER ==
[2021-05-18 20:38] VITALS: BP 123/87; PULSE 87; RESP 18; TEMP 97.7
--- NOTE | 2021-05-18 21:46 | ED ---
General Adult HPI - General Chief complaint: Upper Respiratory Infection Stated complaint: Covid+, dizzy Time Seen by Provider: 05/18/21 21:32 Source: patient, RN notes reviewed Mode of arrival: ambulatory Limitations: no limitations - History of Present Illness Initial comments: Patient is a pleasant 36-year-old female presenting to the emergency department with concern for COVID-19 infection. Onset of symptoms was around a week ago. Patient did test +4 days ago. Patient just wants to get checked out. Patient does have loss of taste and smell. Decreased appetite today. Patient does have some congestion and fatigue. Patient has somewhat of a cough. Patient has felt lightheaded. No vomiting. No diarrhea. No dyspnea. - Related Data Home Medications Medication Instructions Recorded Confirmed Pnv,Calcium 72/Iron/Folic Acid 1 tab PO DAILY 11/21/16 06/04/17 [ Plus Tablet] Acetaminophen Tab [Tylenol Tab] 650 mg PO Q4H PRN 11/22/16 06/04/17 EPINEPHrine (Auto Inject) [Epipen] 0.3 mg IM ONCE PRN 11/22/16 06/04/17 Ibuprofen [Motrin Ib] 800 mg PO Q8H PRN 06/04/17 06/04/17 Previous Rx's Medication Instructions Recorded Sulfamethox-Tmp 800-160Mg [Bactrim 2 each PO Q12HR #56 tab 05/24/17 DS 800-160 mg] predniSONE [Deltasone] 20 mg PO DAILY #3 tab 06/04/17 Cephalexin [Keflex] 500 mg PO BID #14 cap 04/17/19 Clindamycin [Cleocin] 450 mg PO Q6H #120 cap 02/28/20 Albuterol Sulfate [Albuterol 2 puff INHALATION Q6H PRN #8.5 gm 05/18/21 Sulfate Hfa] Allergies Allergy/AdvReac Type Severity Reaction Status Date / Time venom-honey bee Allergy Anaphylaxis Verified 05/18/21 20:38 [bee venom (honey bee)] Review of Systems ROS Statement: Those systems with pertinent positive or pertinent negative responses have been documented in the HPI. ROS Other: All systems not noted in ROS Statement are negative. Constitutional: Reports: chills. Denies: fever Eyes: Denies: eye pain ENT: Denies: ear pain Respiratory: Reports: cough. Denies: dyspnea Cardiovascular: Denies: chest pain Endocrine: Reports: fatigue Gastrointestinal: Denies: abdominal pain, vomiting Genitourinary: Denies: dysuria Musculoskeletal: Denies: back pain Skin: Denies: rash Neurological: Denies: weakness Past Medical History Past Medical History: No Reported History Additional Past Medical History / Comment(s): Allergic to Bees. MISSED AB CURRENTLY History of Any Multi-Drug Resistant Organisms: None Reported Past Surgical History: No Surgical Hx Reported Additional Past Surgical History / Comment(s): CKC, D&C Past Anesthesia/Blood Transfusion Reactions: No Reported Reaction Additional Past Anesthesia/Blood Transfusion Reaction / Comment(s): Has never had anesthesia. Past Psychological History: Anxiety, Depression Smoking Status: Current every day smoker Past Alcohol Use History: Occasional Past Drug Use History: None Reported - Past Family History Mother Family Medical History: No Reported History General Exam Limitations: no limitations General appearance: alert, in no apparent distress Head exam: Present: normocephalic Eye exam: Present: normal appearance Neck exam: Present: normal inspection Respiratory exam: Present: normal lung sounds bilaterally Cardiovascular Exam: Present: regular rate, normal rhythm GI/Abdominal exam: Present: soft. Absent: tenderness Extremities exam: Present: normal inspection. Absent: pedal edema, calf tenderness Neurological exam: Present: alert Psychiatric exam: Present: normal affect, normal mood Skin exam: Present: normal color Course Vital Signs 05/18/21 20:35 Temperature 97.7 F Pulse Rate 87 Respiratory 18 Rate Blood Pressure 123/87 O2 Sat by Pulse 100 Oximetry Medical Decision Making - Medical Decision Making Patient unable to qualify for current guidelines of monoclonal antibodies. Patient offered IV and fluids however refuses. Disposition Clinical Impression: COVID-19 virus infection Disposition: HOME SELF-CARE Condition: Stable Instructions (If sedation given, give patient instructions): Upper Respiratory Infection (ED), Coronavirus Disease 2019 (COVID-19) Additional Instructions: [id number] Tylenol as needed for muscle aches or chills or fatigue. [id number] vitamin C, vitamin D, and zinc daily. Melatonin at bedtime may help as well. Prescription for inhaler has been sent to pharmacy. Return for difficulty breathing, worsening or changing symptoms or any other concerns. Prescriptions: Albuterol Sulfate [Albuterol Sulfate Hfa] 2 puff INHALATION Q6H PRN #8.5 gm PRN Reason: Shortness Of Breath Is patient prescribed a controlled substance at d/c from ED?: No Referrals: Franchesca Figueredo MD [Primary Care Provider] - 1-2 days Time of Disposition: 21:45
== END 2021-05-18 22:00 | disposition home or self-care (01) ==
LOC: EC 18:42
DX: U07.1 COVID-19 (principal); F32.A Depression, unspecified; F41.9 Anxiety disorder, unspecified; F17.200 Nicotine dependence, unspecified, uncomplicated; Z79.52 Long term (current) use of systemic steroids; Z79.1 Long term (current) use of non-steroidal anti-inflammatories (NSAID); Z79.899 Other long term (current) drug therapy
CPT/HCPCS: 87635; 99283

== ENCOUNTER 2021-10-08 06:32 | Day surgery (SDC) | payer OTHER ==
[~2021-10-08 06:32] MED LIST changes: +ACETAMINOPHEN TAB 500 MG TAB PO PRN; +HEPARIN SODIUM,PORCINE/PF 5,000 UNIT/0.5 ML SYRINGE SQ PRN
[2021-10-08] MEDS ORDERED: DEXAMETHASONE SOD PHOSPHATE 4 MG/ML 1 ML VIAL IV ONE (06:50)
[2021-10-08] MEDS ORDERED: LACTATED RINGERS 1,000 ML IV SCH (06:50)
[2021-10-08] MEDS ORDERED: ONDANSETRON 4 MG/2 ML VIAL IVP ONE (06:50)
[2021-10-08] MEDS ORDERED: HYDROmorphone 0.5 MG/0.5 ML SYRINGE IVP PRN (06:50)
[2021-10-08] MEDS ORDERED: HYDROmorphone (PF) 1 MG/ML ONE (07:35)
[2021-10-08] MEDS ORDERED: LIDOCAINE 2% INJ 20 MG/ML (2 ML VIAL) ONE (07:35)
[2021-10-08] MEDS ORDERED: fentaNYL (PF) 50 MCG/ML 2 ML AMP ONE (07:35)
[2021-10-08] MEDS ORDERED: MIDAZOLAM 2 MG/2 ML VIAL ONE (07:35)
[2021-10-08] MEDS ORDERED: KETOROLAC 30 MG/ML 1 ML VIAL ONE (07:35)
[2021-10-08] MEDS ORDERED: PROPOFOL 10 MG/ML 20 ML VIAL IV ONE (07:35)
[2021-10-08] MEDS ORDERED: BUPIVACAIN-EPI 0.25%-1:200,000 30 ML VIAL SQ ONE ×2 (07:53)
[2021-10-08 08:27] VITALS: TEMP 97
[2021-10-08 08:32] VITALS: RESP 18
--- NOTE | 2021-10-08 08:38 | P.GSHP ---
History of Present Illness H&P Date: 10/08/21 Chief Complaint: Left axillary hidradenitis This a 36-year-old female who presents today for excision of left axillary hidradenitis. Patient's had chronic issues with abscess infection of the skin. She is aware the risks of surgery including possible postoperative wound in fection which required wound care and possible packing. Past Medical History Past Medical History: No Reported History Additional Past Medical History / Comment(s): Allergic to Bees. MISSED AB CURRENTLY History of Any Multi-Drug Resistant Organisms: None Reported Past Surgical History: No Surgical Hx Reported Additional Past Surgical History / Comment(s): D&C, colposcopy Past Anesthesia/Blood Transfusion Reactions: No Reported Reaction Additional Past Anesthesia/Blood Transfusion Reaction / Comment(s): Has never had anesthesia. Smoking Status: Current every day smoker - Past Family History Mother Family Medical History: No Reported History Medications and Allergies Home Medications Medication Instructions Recorded Confirmed Type EPINEPHrine (Auto Inject) [Epipen] 0.3 mg IM ONCE PRN 11/22/16 10/06/21 History Multivitamins, Thera [Multivitamin 1 tab PO DAILY 10/06/21 10/06/21 History (formulary)] Allergies Allergy/AdvReac Type Severity Reaction Status Date / Time sulfamethoxazole Allergy itching, Verified 10/08/21 06:54 [From Bactrim] hives trimethoprim [From Bactrim] Allergy itching, Verified 10/08/21 06:54 hives venom-honey bee Allergy Anaphylaxis Verified 10/08/21 06:54 [bee venom (honey bee)] Surgical - Exam Vital Signs Temp Pulse Resp BP Pulse Ox 98.1 F 85 16 109/68 98 10/08/21 07:03 10/08/21 07:03 10/08/21 07:03 10/08/21 07:03 10/08/21 07:03 - General well developed, well nourished, no distress - Eyes PERRL - ENT normal pinna - Neck no masses - Respiratory normal expansion - Cardiovascular Rhythm: regular - Abdomen Abdomen: soft, non tender - Integumentary Chronic hidradenitis of left axilla Assessment and Plan Assessment: Left axillary hidradenitis. Patient will undergo excision. Patient aware the risk of possible postoperative wound infection.
--- NOTE | 2021-10-08 08:42 | P.OP ---
Date of Procedure: 10/08/21 Preoperative Diagnosis: Left axillary hidradenitis Postoperative Diagnosis: Left axillary hidradenitis Procedure(s) Performed: Excision of left axillary hidradenitis Anesthesia: MAC Surgeon: Rickie Gastelum Estimated Blood Loss (ml): 5 Pathology: none sent Condition: stable Disposition: PACU Description of Procedure: The patient's placed on the operating table in the supine position. She received general endotracheal anesthesia. Her left axilla was prepped and draped in the usual fashion. The hidradenitis areas visualized. Elliptical skin incision was made around hidradenitis. The area affected measured approximately 14 cm x 5 cm. Using a 15 blade the skin was incised and then using cautery the skin and subcutaneous tissues were removed. Hemostasis achieved left cautery. The wound was closed with 2-0 nylon sutures. Sterile dressings was applied. Patient top she will was sent to recovery room in stable condition.
[2021-10-08 09:13] VITALS: BP 114/74; PULSE 78
== END 2021-10-08 09:30 | disposition home or self-care (01) ==
LOC: OR 06:32
PROVIDERS: ATTEND Surgery
DX: L73.2 Hidradenitis suppurativa (principal); F17.200 Nicotine dependence, unspecified, uncomplicated; Z88.1 Allergy status to other antibiotic agents; Z88.2 Allergy status to sulfonamides; Z91.030 Bee allergy status
CPT/HCPCS: 11450; 81025; 88304; J2250; J1100; J2405; J3010; J1885; J1170; J2704; J1644; J2001

== ENCOUNTER → 2023-09-14 | Outpatient (CLI) | payer OTHER ==
--- NOTE | 2023-09-14 21:56 | US ---
EXAMINATION TYPE: US thyroid st tissue head/neck DATE OF EXAM: 09/14/2023 COMPARISON: NONE CLINICAL INDICATION: Female, 38 years old with history of R22.1 NECK FULLNESS; Neck fullness GLAND SIZE: Right Lobe: 5.4 x 2.0 x 1.9 cm Overall Parenchyma: homogeneous Left Lobe: 6.0 x 2.0 x 2.2 cm Overall Parenchyma: homogeneous Isthmus Thickness: 0.21 cm NODULES RIGHT: # of nodules measured on right: 0 LEFT: # of nodules measured on left: 1 1. 0.83 X 0.82 x 0.72 cm, lower mid, mixed cystic and solid, hypoechoic nodule, which is wider than tall, with lobulated or irregular margins, without echogenic foci. ISTHMUS: # of nodules measured in the isthmus: 0 Bilateral neck scanned, no evidence of lymphadenopathy. IMPRESSION: 1. Mildly prominent thyroid gland. 2. Less than 1 cm TR 4 nodule in the left thyroid gland. Follow-up in one year is recommended. 2017 ACR TI-RADS LEVEL: TR 4 *Highest TI-RADS level nodule reported
== END | disposition home or self-care (01) ==
LOC: RADUSWWP 16:17
PROVIDERS: ATTEND Family Medicine
DX: E04.1 Nontoxic single thyroid nodule (principal)
CPT/HCPCS: 76536

== ENCOUNTER → 2024-11-21 | Outpatient (CLI) | payer OTHER ==
--- NOTE | 2024-11-21 15:45 | US ---
EXAMINATION TYPE: US thyroid st tissue head/neck DATE OF EXAM: 11/21/2024 COMPARISON: 09/14/2023 CLINICAL INDICATION: Female, 39 years old with history of E04.1 NONTOX SINGLE THY NODULE; Patient den ies any signs, symptoms, or relevant history TECHNIQUE: Grayscale and color Doppler imaging of the thyroid gland. FINDINGS: GLAND SIZE: Right Lobe: 5.7 x 1.9 x 2.1 cm Overall Parenchyma: homogeneous Left Lobe: 5.9 x 1.8 x 2.1 cm Overall Parenchyma: homogeneous Isthmus Thickness: 0.2 cm NODULES RIGHT: # of nodules measured on right: 0 LEFT: # of nodules measured on left: 1 1. 0.7 X 0.6 x 0.7 cm, lower medial, Prior size: 0.8 x 0.8 x 0.7 cm TIRADS Score: 5 TIRADS Category 4: Composition: Solid or almost completely solid (2 points). Echogenicity: Very hypoechoic (3 points). Shape: Wider than tall (0 points). Margin: Smooth (0 points). Echogenic foci: None or large comet-tail artifacts (0 points) Recommendation: If >1.5cm: FNA; If >1cm: Follow up at 1,2, 3,5 years ISTHMUS: # of nodules measured in the isthmus: 0 Bilateral neck scanned, no evidence of lymphadenopathy. IMPRESSION: PI-RADS 5 left thyroid nodule is not significantly changed from 09/14/2023 in size measuring up to 7 mm . Continued yearly surveillance recommended. Highest TI-RADS level nodule reported: 2017 ACR TI-RADS LEVEL: TI-RADS 5 - Highly Suspicious: Follow if > 0.5 cm, FNA if > 1.0 cm TI-RADS assessment score and recommendation for follow-up based on appropriate scoring and treatment protocols. TR1 Benign No FNA TR2 Not suspicious No FNA TR3: If nodule size is ? 2.5 cm, FNA is recommended. If nodule size is ? 1.5 cm, follow-up imaging at 1, 3, and 5 years is recommended. TR4: If nodule size is ? 1.5 cm, FNA is recommended. If nodule size is ? 1.0 cm, follow-up imaging at 1, 2, 3, and 5 years is recommended. TR5: If nodule size is ? 1.0 cm, FNA is recommended. If nodule size is ? 0.5 cm, annual follow-up for up to 5 years is recommended. TR 1 thyroid nodules have a 0.3 % risk of malignancy. TR 2 thyroid nodules have a 1.5 % risk of malignancy. TR 3 thyroid nodules have a 4.8 % risk of malignancy. TR 4 thyroid nodules have a 9.1 % risk of malignancy. TR 5 thyroid nodules have a 35 % risk of malignancy. [email or web address], , 11/21/2024 3:43 PM
== END | disposition home or self-care (01) ==
LOC: RADUSWWP 15:14
PROVIDERS: ATTEND Family Medicine
DX: E04.1 Nontoxic single thyroid nodule (principal)
CPT/HCPCS: 76536